=== PATIENT | male | born 2000 | race Caucasian/White ===

== ENCOUNTER 2020-12-29 09:13 | Emergency (ER) | payer MEDICAID, SELFPAY ==
[2020-12-29 09:35] VITALS: BP 131/76; PULSE 75; RESP 16; TEMP 36.6; O2SAT 100; BMI 20.2
[2020-12-29] MEDS: Fluorescein Sodium STRIP 1 STRIP EYE-BOTH (09:54)
[2020-12-29] MEDS: Tetracaine HCl/PF 0.5% Oph Sol 4 ML DROPS 1 DROP EYE-BOTH (09:54)
--- NOTE | 2020-12-29 10:01 | ED.EYEPROB ---
HPI - Eye Problem General Chief complaint: Eye Problems Stated complaint: EYE INJ AT WORK Time Seen by Provider: 12/29/20 09:45 Source: patient Mode of arrival: ambulatory Limitations: no limitations History of Present Illness HPI Narrative: 20 yo male no known medical history presents to the ED with right eye redness and he feels like there is something in his eye X2 hours. Patient states he works for [employer], he was cutting wood without eye protection, and he feels as though he got saw dust in his eye, he thought it all came out, but then he rubbed his eye, and he feels like he scratched his right eye. He denies headache, vision changes, pain with eye movement, trauma to the eye, nausea, vomiting, headache. Not a contact lens wearer. MD chief complaint: eye redness and foreign body (saw dust. ) Onset (ago): hour(s) (2) Onset description: sudden Duration: constant Location: right eye Eye Symptoms: burning Place: work Mechanism: other (cutting wood w/o safety googles ) Severity: mild If Pain, Quality: other (burnig ) Associated symptoms: none Treatments Prior to Arrival: none Related Data Previous Rx's Medication Instructions Recorded sulfacetamide sodium 10 % eye 2 drp OPHTHALMIC (EYE) Q4H 7 Days 12/29/20 drops (Bleph-10) #15 ml Allergies Allergy/AdvReac Type Severity Reaction Status Date / Time Unable to Assess Allergy Unverified 12/29/20 09:47 Review of Systems Review of Systems: Constitutional : No Weight loss, No Fever, No Chills, No Night Sweats, No Fatigue, No Malaise ENT/Mouth : No Hearing loss, No Ear Pain, No Nasal Congestion, No Sinus Pain, No Hoarseness, No sore throat, No Rhinorrhea, No Swallowing Difficulty Eyes: + Eye Pain, No Swelling, + Redness, + Foreign Body, No Discharge, No Vision Changes Cardiovascular : No Chest Pain, No SOB, No Dyspnea on Exertion, No Orthopnea, No Edema, No Palpitations Respiratory : No Cough, No Sputum, No Wheezing, No Smoke Exposure, No Dyspnea Gastrointestinal : No Nausea, No Vomiting, No Diarrhea, No Constipation, No abdominal Pain, No Hematochezia, No Melena Genitourinary : no irregular bleeding, No Dysuria, No Urinary Frequency, No Hematuria, No Urinary Incontinence, No Urgency, No Flank Pain, No Urinary Flow Changes, No Hesitancy Neuro : No Weakness, No Numbness, No Paresthesias, No Loss of Consciousness, No Dizziness, No Headache [facility], [facility] Past Medical History Attestation statement: The following information was validated with the patient. Source: old records reviewed and nursing notes reviewed Social History Social History Advance Directives: No Advance Directives Information Provided: No Physical Exam Vital Signs: Vital Signs: Last Vital Signs Temp 98 F 12/29/20 09:35 Pulse 75 12/29/20 09:35 Resp 16 12/29/20 09:35 BP 131/76 12/29/20 09:35 Pulse Ox 100 12/29/20 09:35 Body Mass Index 20.2 vital signs have been reviewed as normal and appeared to be correct. Blood pressure normal. Heart rate normal. Respiration rate normal. Temperature normal. Oxygen saturation normal. Appearance: Alert. Oriented X3. No acute distress. Head: Normal external exam. Normocephalic. Atraumatic. No Jeffers signs noted. No raccoon eyes noted Eyes: PERRLA. EOMI, painfree. Conjunctiva and sclera both with slight injection. Eyelids normal. A 1 cm linear area of increased uptake on fluorescein stain was noted in the right eye at the 6 o'clock position. ENT: Pharynx normal. Uvula midline. Moist mucous membranes. No trismus noted. No drooling noted. No muffled voice noted. Neck: Soft full range of motion, no JVD CVS: Heart regular rate and rhythm no murmurs and rubs Respiratory: Breath sounds are clear to auscultation bilaterally. No accessory muscle use noted. Abdomen: Soft nontender no rebound or guarding positive bowel sounds Neuro: Oriented X 3. No motor deficit. No sensory deficit. Reflexes normal. MDM - Eye Problem MDM Narrative Medical decision making narrative: 1010 20-year-old male known medical history presents to the emergency department with concerns of right eye discomfort, redness, and feeling of a foreign body in the eye. Patient works at [employer], he states he was cutting wood, and he feels as though side just got into his right eye. He states after he rubbed his eye, he felt like there is something in there. He was not wearing safety goggles at this time. Denies changes in vision, patient does not wear contact lenses, denies headache, nausea, vomiting, headache. Upon physical exam PERRLA. EOMI, painfree. Conjunctiva and sclera both with slight injection. Eyelids normal. A 1 cm linear area of increased uptake on fluorescein stain was noted in the right eye at the 6 o'clock position. Likely representing a corneal abrasion. Ophthalmoscope exam within normal limits. Plan d/c patient home on antibiotic drops, Bleph-10 X7 days. He has been advised to follow-up with ophthalmology with new or worsening symptoms. He has also been told to follow up with the Work [facility]. He is safe for discharge home, with ophthalmology follow-up. He has been advised to return with new or worsening symptoms. Patient has been given the [employer] phone number. Discharge Plan Discharge Clinical Impression: Work related injury Corneal abrasion Qualifiers: Encounter type: initial encounter Laterality: right Qualified Code(s): S05.01XA - Injury of conjunctiva and corneal abrasion without foreign body, right eye, initial encounter Patient Disposition: Home, Self-Care Instructions: Corneal Abrasion (ED) Additional Instructions: Follow up with work connection [phone] Follow up with ophthalmology with worsening symptoms or if no improvement Return to the emergency department with new or worsening symptoms Prescriptions: New sulfacetamide sodium [Bleph-10] 10 % drops 2 drp ophthalmic (eye) Q4H 7 Days Qty: 15 RF: 0 Referrals: Andres Reeves [Physician] - 5 days Stand Alone Forms: Work/School Release
== END 2020-12-29 10:19 | disposition home or self-care (01) ==
LOC: HO.ED 10:09
PROVIDERS: Emergency Provider Emergency Medicine
DX: S05.01XA Injury of conjunctiva and corneal abrasion without foreign body, right eye, initial encounter (principal); X58.XXXA Exposure to other specified factors, initial encounter; Y93.89 Activity, other specified; Y92.9 Unspecified place or not applicable; Y99.0 Civilian activity done for income or pay
CPT/HCPCS: 99283

== ENCOUNTER 2024-10-21 14:02 | Outpatient (REF) | payer MEDICAID, SELFPAY ==
--- OUTSIDE RECORDS SUMMARY | 2024-10-21 15:01 | XMS_ITS | Encounter Summary ---
Author Organization [employer] Address [address] [place] [address] 7 [place] [address] Care Team Providers Care Associate Financial Analyst Name Role Phone Deanna Trotter [facility] Primary Care Provider [phone] Reason for Visit * Reason Onset Date Comments PT1 01/07/2023 Encounter Details Date Type Department Care Team (Late st Contact Info) Description 01/07/2023 Telephone [place] [facility] [address] [place] [address] [place], [place], [facility] [address] [place] [address] PT1 Social History Tobacco Use Types Packs/Day Years Used Date Smoking Tobacco: Never Smokeless Tobacco: Never Alcohol Use Standard Drinks/Week Comments Not Currently 0 (1 standard drink = 0.6 oz pur e alcohol) Sex and Gender Information Value Date Recorded Sex Assigned at Male 03/20/2022 11:15 AM EST Legal Sex Male 8:40 PM EDT Gender Identity Male 03/20/2022 11:15 AM EST Sexual Orientation Straight 05/07/2022 2: 57 PM EDT documented as of this encounter Miscellaneous Notes * Telephone Encounter - Elmira Manriquez - 01/07/2023 9:58 AM EST PT 1 for [facility] PT-1 Request [id number] [facility] [place] [id number] * Telephone Encounter - Carmen Hebert - 01/07/2023 9:22 AM EST Needs to request a PT1 From Home address to [facility] [address] [facility] [place] [facility] [address] [facility] documented in this encounter Plan of Treatment Not on file documented as of this encounter Visit Diagnoses Not on filedocumented in this encounter Care Teams Associate Financial Analyst Relationship Specialty Start Date End Date Deanna Trotter FNP [address] [place] [address] PCP - General Family Medicine 02/02/22 documented as of this encounter
--- OUTSIDE RECORDS SUMMARY | 2024-10-21 15:01 | XMS_ITS | Encounter Summary ---
Author Organization [employer] [facility] Address [address] [place] [address] 7 [place] [address] Care Team Providers Care Title Agent Name Role Phone [facility] Primary Care Provider [phone] Encounter Details Date Type Department Care Team (Late st Contact Info) Description 03/26/2023 Orders Only [facility] Information Management [address] [place] [address] [facility] [address] [place] [address] Social History Tobacco Use Types Packs/Day Years [...] PM EDT documented as of this encounter Plan of Treatment Not on file documented as of this encounter Procedures Procedure Name Priority Date/Time Associated Diagnosis Comments EMG Routine 03/25/2023 documented in this encounter Results * EMG (03/25/2023) [facility] NEUROLOGY ORDERABLES Edit ed Result - Final documented in this encounter Visit Diagnoses Not on filedocumented in this encounter Care Teams Title Agent Relationship Specialty Start Date End Date [facility] [address] [place] [address] PCP - General Family Medicine 02/02/22 documented as of this encounter
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
--- OUTSIDE RECORDS SUMMARY | 2024-10-21 15:01 | XMS_ITS | Encounter Summary ---
Author Organization [employer] Address [address] [facility] 7[address] [place] [address] Care Team Providers Care Senior Sustainability Consultant Name Role Phone [facility] Primary Care Provider [phone] Encounter Details Date Type Department Care Team (Late st Contact Info) Description 03/11/2023 Orders Only [facility] Information Management [address] [place] [address] [facility] [address] [place] [address] Social History Tobacco Use Types Packs/Day Years [...] Procedure Name Priority Date/Time Associated Diagnosis Comments CT FEMUR WO CONTRAST LEFT Routine 01/23/2023 CT WRIST WO CONTRAST RIGHT Routine 12/24/2022 documented in this encounter Results * CT Femur w/o Contrast Left (01/23/2023) Anatomical Region Laterality Modality Lower Extremities, Femur Left Compute d Tomography [facility] CT PROCEDURES Edited Result - Final * CT Wrist w/o Contrast Right (12/24/2022) Anatomical Region Laterality Modality Upper Extremities, Wrist Right Compute d Tomography us Deanna Frontiero RESIDENT SERVICES MANAGER IMG CT PROCEDURES Edited Result - Final documented in this encounter Visit Diagnoses Not on filedocumented in this encounter Care Teams Senior Sustainability Consultant Relationship Specialty Start Date End Date Deanna Trotter FNP [address] [facility] [address] PCP - General Family Medicine 02/02/22 documented as of this encounter
--- OUTSIDE RECORDS SUMMARY | 2024-10-21 15:01 | XMS_ITS | Encounter Summary ---
Author Organization [employer] Address [address] [facility] [address] [place] [address] Care Team Providers Care Plastics Scientist Name Role Phone Deanna Trotter [facility] Primary Care Provider [phone] Reason for Visit * Reason Onset Date Comments PT-1 12/04/2023 Encounter Details Date Type Department Care Team (Late st Contact Info) Description 12/04/2023 Telephone Hernesto [facility] [address] [place], [place] [id number] Deanna Trotter, [facility] [address] [place] [address] PT-1 Social History Tobacco Use Types Packs/Day Years [...] encounter Miscellaneous Notes * Telephone Encounter - Liz Mg - 12/05/2023 3:12 PM EDT OM for approval. [id number] Ramses Hoang - 2000 [address] [place] [address] Carlo Enriquez -[address] [facility] [address] 12/04/2024 Frequency - 4 per Month - Duration 12 Month(s) Escort:No Wheelchair:No Transportation Phone: [employer] [phone] Authorized * Telephone Encounter - Liz Mg - 12/05/2023 10:15 AM EDT PT-1 Request [id number] Pending * Telephone Encounter - Bette Sy - 12/04/2023 10:57 AM EDT Pt-1 Request/Renewal: Letter from [facility] Name of Treating Provider/Treating Facility: Carlo Enriquez ([facility] Address of Treating Facility: [address] [place] [id number] Number of Visits Requested: N/A Patient's Physical Address: [address] [place] [address] [place] [address] Date of Expiration: 12/28/2023 documented in this encounter Plan of Treatment Not on file documented as of this encounter Visit Diagnoses Not on filedocumented in this encounter Care Teams Plastics Scientist Relationship Specialty Start Date End Date [place], [place], DARIAN [address] [facility] [place] [address] PCP - General Family Medicine 02/02/22 documented as of this encounter
--- OUTSIDE RECORDS SUMMARY | 2024-10-21 15:01 | XMS_ITS | Encounter Summary ---
Author Organization [employer] [facility] Address [address] [place] [address] 7 h Floor [place] [id number] Care Team Providers Care Cuff Setter Name Role Phone Deanna Trotter [facility] Primary Care Provider [phone] Reason for Visit * Reason Comments Med Refill Encounter Details Date Type Department Care Team (Late st Contact Info) Description 05/31/2022 Refill Hernesto [facility] [address] [place] [address] Sobia Kay MD [address] [place] [address] Other chronic pain Social History Tobacco Use Types Packs/Day Years [...] documented as of this encounter Visit Diagnoses Diagnosis Other chronic pain documented in this encounter Care Teams Cuff Setter Relationship Specialty Start Date End Date Deanna Trotter [facility] [address] [place] [address] PCP - General Family Medicine 02/02/22 documented as of this encounter
--- OUTSIDE RECORDS SUMMARY | 2024-10-21 15:01 | XMS_ITS | Clinical Summary ---
Author Organization [facility] Address [address] [place], [place] [phone] Phone Care Team Providers Care Supervisor Edging Name Role Phone Pcp, Unknown Primary Care Provider Unavailabl e Social History Tobacco Use Types Packs/Day Years Used Date Smoking Tobacco: Never Assessed Education Answer Date Recorded Are you interested in more education? Not on severo e 06/23/2022 Are you concerned about learning? Not on file 06/23/2022 No 06/23/2022 No 06/23/2022 Digital Access Answer Date Recorded No 07/24/2022 No 07/24/2022 Reliable internet access at home? Not on file 07/24/2022 Device with a working camera? Not on file Sex and Gender Information Value Date Recorded Sex Assigned at Not on file Legal Sex Male 1:17 PM EDT Gender Identity Not on file Sexual Orientation Not on file Plan of Treatment Health Maintenance Due Date Last Done Comments Adult Td,Tdap Booster 1999 DEPRESSION SCREENING 2011 SMOKING Hx and SMOKELESS TOB ACCO SCREENING 10/23/2012 HPV VACCINES (1 - Male 3-dos e series) 10/23/2014 HEPATITIS C SCREENING 10/23/2017 HIV ONE-TIME SCREENING (18-6 5 YEARS) 10/23/2017 COVID-19 VACCINE ( - 2023-2 5 season) 2023 HEPATITIS A VACCINES Aged Out No long er eligible based on patient's age to complete this topic HIB VACCINES Aged Out No longer eligi ble based on patient's age to complete this topic MENINGOCOCCAL VACCINES (ACWY) Aged Out No longer eligible based on patient's age to complete this topic MENINGOCOCCAL VACCINES (B) Aged Out N o longer eligible based on patient's age to complete this topic PNEUMOCOCCAL VACCINES (0-49 years) Aged Out No longer eligible based on patient's age to complete this topic Medical Devices Not on file Insurance C3 ACO C3 ACO C3 ACO Care Teams Supervisor Edging Relationship Specialty Start Date End Date Pcp, Unknown PCP - General 09/29/21 Additional Source Comments The information contained in this document represents components of the legal health record. It is not the complete legal health record.[facility]
[2024-10-21 16:21] LABS: MANUAL DIFF FLAG NO
[2024-10-21 16:28] LABS: Hematocrit 46.1 % (42.0-52.0); Hemoglobin 15.6 g/dl (14.0-18.0); Imm Gran Abs Auto 0.03 X10*3/uL (0.00-0.03); Imm Gran Pct Auto 0.3 % (0.0-0.4); Lymphocytes Absolute Auto 1.3 X10*3/uL (1.2-4.9); Mean Corpuscular HGB Conc 33.8 g/dl (31.0-36.0); Mean Corpuscular Hemoglobin 29.9 pg (27.0-33.0); Mean Corpuscular Volume 88.3 fL (80.0-98.0); NRBC Abs Auto 0.000 X10*3/uL (0.0-0.012); NRBC Pct Auto 0.0 /100WBC (0.0-0.2); Platelet Count 386 X10*3/uL (160-400); Red Blood Count 5.22 X10*6/uL (4.60-5.80); White Blood Count 8.9 X10*3/uL (4.8-10.8)
[2024-10-21 16:53] LABS: Alanine Aminotransferase 18 U/L (0-40); Albumin Level 5.2 g/dL (3.5-5.0); Alkaline Phosphatase 71 U/L (39-117); Anion Gap 11 (12-20); Aspartate Amino Transferase 20 U/L (5-37); Blood Urea Nitrogen 7 mg/dL (9-16); Calcium 9.5 mg/dL (8.4-10.2); Carbon Dioxide 22 mmol/L (22-29); Chloride 109 mmol/L (96-108); Cholesterol 171 mg/dL (<200); Estimated Glomerular Filt Rate > 60; HDL Cholesterol 37 mg/dL (>40); Potassium 3.4 mmol/L (3.3-5.1); Sodium 139 mmol/L (135-145); Total Protein 7.9 g/dL (6.5-8.0); Triglycerides 71 mg/dL (<150)
[2024-10-21 18:19] LABS: Lithium 0.53 mmol/L (0.60-1.20)
== END 2024-10-21 14:03 | disposition home or self-care (01) ==
LOC: HO.HHCL 14:02
PROVIDERS: PCP Nurse Practitioner; Visit Provider Registered Nurse Psychiatric/Mental Health
DX: Z79.899 Other long term (current) drug therapy (principal)
CPT/HCPCS: 36415; 80053; 80061; 80178; 82248; 84443; 85025